=== PATIENT | male | born 1945 | race Caucasian/White ===

== ENCOUNTER 2016-08-25 06:03 | Observation (INO) | payer OTHER ==
[~2016-08-25] VITALS: Ht 175.3 cm; Wt 80.0 kg
[2016-08-25] VITALS (9 sets, daily range): BP systolic 96–129; BP diastolic 62–99; PULSE 73–96; RESP 16–18; TEMP 97.7–98; O2SAT 95–99
[2016-08-25] MEDS ORDERED: METOPROLOL TARTRATE 25 MG TAB PO PRN (06:45)
[2016-08-25] MEDS ORDERED: SODIUM CHLORID 0.9% 500 ML IV SCH (06:45)
[2016-08-25] MEDS ORDERED: LORazepam 1 MG TAB SL SCH (06:45)
[2016-08-25] MEDS ORDERED: INSULIN HUMAN REGULAR 1,000 UNITS/10 ML VIAL SQ PRN (06:45)
[2016-08-25] MEDS ORDERED: LACTATED RINGER'S 1000 ML IV SCH (06:45)
[2016-08-25] MEDS ORDERED: MULT400T PO (06:56)
[2016-08-25] MEDS ORDERED: WARF-23 PO (06:56)
[2016-08-25 07:05] LABS: AUTOMATED NEUTROPHIL # 2.6 TH/MM3 (1.8-7.7); BASOPHIL # 0.1 TH/MM3 (0-0.2); BASOPHIL % 1.5 % (0.0-2.0); EOSINOPHIL # 0.2 TH/MM3 (0-0.4); EOSINOPHIL % 3.5 % (0.0-4.0); HEMATOCRIT 44.4 % (39.0-51.0); HEMO FLAGS DIFF FINAL; LYMPHOCYTE # 1.3 TH/MM3 (1.0-4.8); MEAN CELL VOLUME 91.3 FL (80.0-100.0); MEAN CORPUSCULAR HEMOGLOBIN 31.8 PG (27.0-34.0); MEAN CORPUSCULAR HGB CONC 34.8 % (32.0-36.0); MONO % 9.3 % (0.0-8.0); NEUT % 56.7 % (16.0-70.0); PLATELET COUNT 151 TH/MM3 (150-450); RED BLOOD COUNT 4.86 MIL/MM3 (4.50-5.90); RED CELL DISTRIBUTION WIDTH 13.2 % (11.6-17.2); WHITE BLOOD COUNT 4.5 TH/MM3 (4.0-11.0)
[2016-08-25 07:12] LABS: APTT (PATIENT) 34.5 SEC (24.3-30.1); INTERNATIONAL NORMALIZED RATIO 2.1 RATIO; PROTHROMBIN TIME - PATIENT 23.6 SEC (9.8-11.6)
[2016-08-25 07:30] LABS: BICARBONATE 25.1 MEQ/L (21.0-32.0); POTASSIUM 3.9 MEQ/L (3.5-5.1)
[2016-08-25] MEDS ORDERED: LEVOFLOXACIN 500 MG PREMIX INJ 100 ML IV ONE (07:38)
[2016-08-25] MEDS ORDERED: HEPARIN-NS/PF INJ 500 ML ONE (07:38)
[2016-08-25] MEDS ORDERED: fentaNYL CITRATE 250 MCG/5 ML AMP ONE (08:42)
[2016-08-25] MEDS ORDERED: MIDAZOLAM HCL 2 MG/2 ML VIAL ONE (08:42)
--- NOTE | 2016-08-25 09:14 | EKG ---
Date Performed: 08/25/2016 Time Performed: 06:57:30 PTAGE: 71 years EKG: Atrial fibrillation Indeterminate axis Right bundle branch block Inferior T wave changes ar e nonspecific Low QRS voltages in precordial leads Abnormal ECG NO PREVIOUS TRACING DOCTOR: Alexis Boone Interpretating Date/Time 08/25/2016 09:13:47
[2016-08-25] MEDS ORDERED: ISOPROTERENOL HCL 1 MG/5 ML AMP ONE (09:18)
[2016-08-25] MEDS ORDERED: HEPARIN SODIUM - IV 10,000 UNITS/10 ML VIAL ONE (09:19)
[2016-08-25] MEDS ORDERED: PROTAMINE SULFATE 50 MG/5 ML VIAL ONE (09:19)
[2016-08-25] MEDS ORDERED: FUROSEMIDE 40 MG/4 ML VIAL ONE (11:15)
[2016-08-25] MEDS ORDERED: ATROPINE SULFATE 1 MG/ML VIAL IV PRN (11:45)
[2016-08-25] MEDS ORDERED: LORazepam 2 MG/ML VIAL IV PRN (11:45)
[2016-08-25] MEDS ORDERED: oxyCODONE/ACETAMINOPHEN 5 MG/325 MG TAB PO PRN ×2 (11:45)
[2016-08-25] MEDS ORDERED: METOCLOPRAMIDE HCL 10 MG/2 ML VIAL IV PRN (11:45)
[2016-08-25] MEDS ORDERED: SODIUM CHLOR 0.9% 250 ML INJ 250 ML IV PRN (11:45)
[2016-08-25] MEDS ORDERED: LIDOCAINE HCL 1% 50 ML VIAL INFIL PRN (11:45)
[2016-08-25] MEDS ORDERED: BACITRACIN OINT 0.9 GM PKT TOP ONE (11:45)
[2016-08-25] MEDS ORDERED: ONDANSETRON HCL 4 MG/2 ML VIAL IV PRN (11:45)
--- NOTE | 2016-08-25 11:53 | PD.CARD ---
Atrial Fibrillation Ablation PROCEDURES PERFORMED: 1. Electrophysiology study on Isuprel infusion 2. CS cannulation 3. 3-D mapping 4. Transseptal approach 5. Right and left heart catheterization 6. Intracardiac echo 7. Radiofrequency ablation of atrial fibrillation 8. Pulmonary vein isolation 9. Posterior wall ablation 10. Mitral valve isolation 11. Mitral line creation 12. Left atrial tachycardia ablation 13. Roof line creation 14. Floor line creation 15. Anterior and posterior ablation 16. Cardioversion INDICATIONS FOR THE PROCEDURE Mr. Khoury is a 71-year-old male with atrial fibrillation, very symptomatic, heart rate difficult to control, on anticoagulation, referred for electrophysiology study and ablation. The risks, the nature and the benefits of the procedure were clearly stated to him. The risks include pneumothorax, cardiac perforation, stroke, need for open heart surgery and even . The patient understood and agreed to proceed. DESCRIPTION OF THE PROCEDURE IN DETAIL As written informed consent was obtained prior to esophageal echocardiogram, the patient was kept on the table where he was prepped and draped in the usual sterile fashion. Conscious sedation was initiated and maintained throughout the procedure by the anesthesiologist. Once sedation was verified, the right and left inguinal areas were anesthetized with 2% Xylocaine. Using modified Seldinger technique, the left femoral vein was cannulated on three occasions, three guidewires were advanced. Over the wire a 6, 7 and a 10-English Hemaquet were advanced. Then the left femoral artery was cannulated on one occasion, one guidewire was advanced. Over the wire a 4-English Hemaquet was advanced. Then the right femoral vein was cannulated on one occasion, one guidewire was advanced. Over the wire a 8-English Hemaquet was advanced. Then under fluoroscopic guidance through the 6 and 7-English Hemaquet, two 5-English Yogi curved quadripolar electrophysiology catheters were advanced and placed around the His as well as coronary sinus. Basic interval was measured. The patient was in atrial fibrillation. Through the 10-English Hemaquet, a CordDiamond Multimediater AcuNav intracardiac echo catheter was advanced and placed at the right atrium. Multiple view was obtained. There is no pericardial effusion, pulmonary vein was seen, atrial septal was visualized. Then the 8-English Hemaquet in the right femoral vein was exchanged for Agilis transseptal sheath that was placed all the way to the superior vena cava. Through the sheath a Thania needle was advanced, then the sheath, the dilator and the needle were progressed until foci engaged. Once engaged, the needle was advanced. RF was delivered for 2 seconds. I was able to cross into the left atrium. Once the needle crossed, the dilator was advanced. Once the dilator crossed, the sheath was advanced. Once the sheath crossed, the dilator and the needle were removed. At this point I did flushed the system and fluid movement was seen in the left atrium the indicates the sheath is in good position. The patient already received 8,000 units of heparin. The goal is to keep an ACT around 350 during ablation. Then through the sheath a St. Kwan 20 pulse circumferential catheter was advanced. Using DivvyDown endocardial solution mapping system, a two- dimensional configuration of the left atrium was obtained. Points were taken at the left superior and inferior veins, right superior and inferior veins, mitral valve, and appendages. Then through the sheath a St. Kwan TactiCath 65cm 3.5mm irrigated tipped mapping and radiofrequency ablation catheter was advanced. Esophageal probe was placed temperature monitoring during ablation. When it increased to 0.5 degrees Celsius above baseline, I moved to a different area of the atrium. First I did isolate the left superior and inferior vein. I did make a big seneca-cayuga around the veins. Posterior was ablated. Then a roof line was created, a floor line was created, a mitral line was isolated, then the mitral valve was isolated. At that point the patient was in left atrial tachycardia. I did create a line from the floor to the roof area, passing by the left atrial appendage. Then the right superior and inferior veins were isolated. I did remap the atrium. There is no significant signal in the atrium. At this point I decided to proceed with cardioversion. A 200 sync biphasic joule was delivered that converted the patient into sinus rhythm. At that point I did advance the circumferential catheter again into the vein. There was no signal into the vein, pacing from the vein showed no conduction to the atrium. Isuprel infusion was initiated at 10 mcg for over 10 minutes. No tachyarrhythmia was induced, post Isuprel no tachyarrhythmia was induced. At that point the procedure was complete. All catheters were removed, atrial septal sheath was exchanged for 9-English Hemaquet, intracardiac echo showed no pericardial effusion. There is still good flow in the pulmonary vein. The patient is going to be transferred to the recovery room. No incident report. The patient tolerated the procedure. Blood loss was minimal. FINDINGS 1. Electrocardiogram: At baseline the patient was in atrial fibrillation, post procedure the patient was in sinus rhythm. 2. Basic interval: Base cycle length was around 450. Post ablation she was around 890 milliseconds. AH at 90 and HV at 45 milliseconds. 3. Tachyarrhythmia: Atrial fibrillation was mapped and ablated. Atrial tachycardia was ablated. The ablation was successful. CONCLUSION Successful electrophysiology study, mapping, radiofrequency ablation of atrial fibrillation, left atrial tachycardia, pulmonary vein isolation, posterior ablation, mitral valve isolation, mitral line creation, roof line creation, floor line creation, left atrial tachycardia, and cardioversion. COMMENTS AND RECOMMENDATIONS The patient is going to be transferred to the telemetry unit. Will be observed and when stable can be discharged home. Jina Sands MD Aug 25, 2016 11:53
--- NOTE | 2016-08-25 11:56 | ETE ---
Study Study Date:08/25/2016 STUDY CONCLUSIONS SUMMARY - Left ventricle: The cavity size was normal. Wall thickness was normal. Systolic function was normal. The estimated ejection fraction was in the range of 55% to 60%. Wall motion was normal; there were no regional wall motion abnormalities. - Aortic valve: No evidence of vegetation. - Mitral valve: No evidence of vegetation. Mild regurgitation. - Left atrium: The atrium was dilated. No evidence of thrombus in the atrial cavity or appendage. No evidence of thrombus in the atrial cavity or appendage. - Right atrium: No evidence of thrombus in the atrial cavity or appendage. - Atrial septum: No defect or patent foramen ovale was identified. Echo contrast study showed no abstt-tq-[id number] atrial level shunt, at baseline or with provocation. - Tricuspid valve: No evidence of vegetation. Mild regurgitation. - Pulmonic valve: No evidence of vegetation. If LV function is below 40, please consider prescribing an ACEI or ARB or document rationale for non-use. PROCEDURE DATA Consent: The risks, benefits, and alternatives to the procedure were explained to the patient and informed consent was obtained. Procedure: Initial setup. The patient was brought to the laboratory in the fasting state. Intravenous access was obtained. Surface ECG leads and pulse oximetric signals were monitored. Sedation. Conscious sedation was administered by anesthesiology. Transesophageal echocardiography. Topical anesthesia was obtained using viscous lidocaine. A transesophageal probe was inserted by the attending beauty culture teacher. Image quality was good. Study completion: All IVs inserted during the procedure were removed. The patient tolerated the procedure well. There were no complications. Transesophageal echocardiography. 2D, complete spectral Doppler, and color Doppler. CARDIAC ANATOMY LEFT VENTRICLE: The cavity size was normal. Wall thickness was normal. Systolic function was normal. The estimated ejection fraction was in the range of 55% to 60%. Wall motion was normal; there were no regional wall motion abnormalities. AORTIC VALVE: Trileaflet; mildly thickened, mildly calcified leaflets. Cusp separation was normal. No evidence of vegetation. Doppler: No significant regurgitation. Aorta: - There was no atheroma. There was no evidence for dissection. Aortic root: The aortic root was not dilated. Ascending aorta: The ascending aorta was normal in size. Aortic arch: The aortic arch was normal in size. Descending aorta: The descending aorta was normal in size. MITRAL VALVE: Structurally normal valve. Leaflet separation was normal. No evidence of vegetation. Doppler: Mild regurgitation. LEFT ATRIUM: The atrium was dilated. No evidence of thrombus in the atrial cavity or appendage. No evidence of thrombus in the atrial cavity or appendage. The appendage was morphologically a left appendage, multilobulated, and of normal size. Emptying velocity was normal. ATRIAL SEPTUM: No defect or patent foramen ovale was identified. Echo contrast study showed no ybxlg-zq-cxoq atrial level shunt, at baseline or with provocation. RIGHT VENTRICLE: The cavity size was normal. Wall thickness was normal. Systolic function was normal. PULMONIC VALVE: Structurally normal valve. No evidence of vegetation. TRICUSPID VALVE: Structurally normal valve. Leaflet separation was normal. No evidence of vegetation. Doppler: Mild regurgitation. PULMONARY ARTERY: The main pulmonary artery was normal-sized. RIGHT ATRIUM: The atrium was normal in size. No evidence of thrombus in the atrial cavity or appendage. The appendage was morphologically a right appendage. PERICARDIUM: There was no pericardial effusion. Prepared and signed by Jina Sands [id number]
[2016-08-25] MEDS ORDERED: DO NOT ADM ANY ANTICOAGULANT DRUGS XX PRN ×2 (12:15→16:00)
[2016-08-25] MEDS ORDERED: PHENYLEPH/NS 1000 MCG/10 ML SYR OTHER ONE (13:50)
[2016-08-25] MEDS ORDERED: ePHEDrine/NS 50 MG/5 ML SYR OTHER ONE (13:50)
[2016-08-25] MEDS ORDERED: SODIUM CHLORID 0.9% 500 ML BAG OTHER ONE (13:50)
[2016-08-25] MEDS ORDERED: SODIUM CHLOR 0.9% IV ONE (13:50)
[2016-08-25] MEDS ORDERED: PROPOFOL 200 MG/20 ML AMP OTHER ONE (13:50)
[2016-08-25] MEDS: WARFARIN SOD 5 MG TAB PO SCH (16:17)
[2016-08-25] MEDS: SODIUM CHLORID 0.9% 500 ML INJ 500 ML IV SCH (23:25)
[2016-08-26] VITALS (21 sets, daily range): BP systolic 95–126; BP diastolic 68–76; PULSE 58–96; RESP 16–20; TEMP 97.7–98.5; O2SAT 93–97
[2016-08-26] MEDS: AMIODARONE 200 MG TAB PO SCH ×3 (00:07→23:00)
[2016-08-26 09:04] LABS: APTT (PATIENT) 35.1 SEC (24.3-30.1); INTERNATIONAL NORMALIZED RATIO 2.7 RATIO; PROTHROMBIN TIME - PATIENT 30.7 SEC (9.8-11.6)
[2016-08-26] MEDS ORDERED: AMIO200T PO ×2 (09:27)
--- NOTE | 2016-08-26 09:33 | PD.CARD.PN ---
Subjective Subjective Remarks Feels ok. Objective Medications Current Medications Medications (Trade) Dose Ordered Sig/Susan Route Start Time Stop Time Status Last Admin (NS 500 ml Inj) 500 ml @ 30 mls/hr [id number] IV 08/25/16 06:45 (Percocet 5-325 Mg) 1 tab Q4H PRN PO 08/25/16 11:45 (Percocet 5-325 Mg) 2 tab Q4H PRN PO 08/25/16 11:45 (Ativan Inj) 0.5 mg UNSCH PRN IV 08/25/16 11:45 08/26/16 11:44 Atropine Sulfate 0.5 mg 0.5 mg UNSCH PRN IV 08/25/16 11:45 (NS 250 ml Inj) 250 ml @ 500 mls/hr ONCE PRN IV 08/25/16 11:45 08/26/16 11:44 (Reglan Inj) 10 mg Q4H PRN IV 08/25/16 11:45 (Zofran Inj) 4 mg Q4H PRN IV 08/25/16 11:45 08/25/16 16:17 (Xylocaine 1% Inj (50 ml)) 10 ml UNSCH PRN INFIL 08/25/16 11:45 08/26/16 11:44 (Coumadin) 5 mg DAILY@1600 PO 08/25/16 16:00 08/25/16 16:17 (Cordarone) 400 mg Q12H PO 08/25/16 12:00 08/30/16 00:01 08/26/16 00:07 (Cordarone) 200 mg DAILY PO 08/30/16 09:00 Miscellaneous Information ALL NURSING DEPARTME... UNSCH PRN XX 08/25/16 12:15 08/26/16 12:14 Miscellaneous Information ALL NURSING DEPARTME... UNSCH PRN XX 08/25/16 16:00 08/26/16 15:59 Vital Signs / I&O Vital Signs Date Time Temp Pulse Resp B/P Pulse Ox O2 Delivery O2 Flow Rate FiO2 08/26/16 09:23 93 21 08/26/16 07:51 97.8 79 20 95/70 97 08/26/16 03:00 98.1 58 18 126/76 97 08/25/16 23:00 98.0 73 18 104/65 96 08/25/16 20:47 95 Nasal Cannula 3.00 08/25/16 19:00 97.9 96 16 103/74 96 08/25/16 18:32 97.8 80 18 108/84 98 08/25/16 18:01 97.8 78 18 103/82 97 08/25/16 17:03 97.8 84 18 101/75 95 08/25/16 15:32 97.9 94 18 96/62 99 08/25/16 15:00 97.8 96 18 96/62 99 08/25/16 15:00 97.9 94 18 110/83 97 08/25/16 13:55 97.5 87 16 100/81 97 Nasal Cannula 3 08/25/16 13:30 80 16 110/79 97 Nasal Cannula 3 08/25/16 13:00 80 16 103/73 97 Nasal Cannula 3 08/25/16 12:45 80 16 96/76 97 Nasal Cannula 3 08/25/16 12:30 85 16 110/75 97 Nasal Cannula 3 08/25/16 12:15 81 17 105/85 97 Nasal Cannula 3 08/25/16 12:00 79 15 115/68 96 Nasal Cannula 3 08/25/16 11:45 92 15 117/79 96 Nasal Cannula 3 08/25/16 11:40 98.4 83 14 124/63 95 Nasal Cannula 3 I/O 08/25/16 08/25/16 08/25/16 08/26/16 08/26/16 08/26/16 07:00 15:00 23:00 07:00 15:00 23:00 Intake Total 3100 ml 720 ml 1680 ml Output Total 3150 ml 650 ml 550 ml Balance -50 ml 70 ml 1130 ml Intake Oral 720 ml 1680 ml IV Total 1000 ml Other 2100 ml Output Urine Total 3050 ml 650 ml 550 ml Estimated Blood Loss 100 ml Physical Exam GENERAL: Well-nourished, well-developed patient. SKIN: Warm and dry.Groin sites soft with no bleeding or swelling. HEAD: Normocephalic. EYES: No scleral icterus. No injection or drainage. NECK: Supple, trachea midline. No JVD or lymphadenopathy. CARDIOVASCULAR: Regular rate, irregular rhythm without murmurs, gallops, or rubs. RESPIRATORY: Breath sounds equal bilaterally. No accessory muscle use. GASTROINTESTINAL: Abdomen soft, non-tender, nondistended. EXTREMITIES: No cyanosis, or edema. NEUROLOGICAL: Awake, alert, and oriented x 3. Non-focal. Laboratory Laboratory Tests Test 08/26/16 07:05 Prothrombin Time 30.7 SEC Prothromb Time International 2.7 RATIO Ratio Activated Partial 35.1 SEC Thromboplast Time Assessment and Plan Problem List: (1) Atrial fibrillation Assessment and Plan: Converted back to afib after successful ablation. Amiodarone loading ordered. HR controlled. (2) S/P ablation of atrial fibrillation Assessment and Plan: Groin sites stable, VSS, in afib at controlled rate on amio. Hold DC home today per my d/w Dr. Sands Problem Qualifiers (1) Atrial fibrillation: Qualified Code: I48.2 - Chronic atrial fibrillation Nirmala Delgadillo Aug 26, 2016 09:33
[2016-08-26] MEDS: CEPHALEXIN MONOHYDRATE 500 MG CAP PO SCH ×2 (14:18→21:13)
[2016-08-26] MEDS: SODIUM CHLORID 0.9% 500 ML INJ 500 ML IV SCH (16:05)
[2016-08-26] MEDS: WARFARIN SOD 5 MG TAB PO SCH (16:05)
--- NOTE | 2016-08-26 22:50 | EKG ---
Date Performed: 08/26/2016 Time Performed: 04:05:40 PTAGE: 71 years EKG: Sinus rhythm with PAC(s) Indeterminate axis Right bundle branch block Inferior ST-T changes are nonspecific Abnor mal ECG PREVIOUS TRACING : 08/25/2016 12.01 DOCTOR: Jina Sands Interpretating Date/Time 08/26/2016 22:46:49
--- NOTE | 2016-08-26 23:11 | EKG ---
Date Performed: 08/25/2016 Time Performed: 12:01:38 PTAGE: 71 years EKG: Sinus rhythm WITH OCCASIONAL SUPRAVENTRICULAR PREMATURE COMPLEXES RIGHT BUNDLE BRANCH BLOCK ABNORMAL ECG PREVIOUS TRACING : 08/25/2016 06.57 DOCTOR: Jina Sands Interpretating Date/Time 08/26/2016 23:06:44
[2016-08-27] VITALS (19 sets, daily range): BP systolic 116–128; BP diastolic 76–99; PULSE 65–87; RESP 16–18; TEMP 97.7–98.1; O2SAT 95–97
[2016-08-27] MEDS: CEPHALEXIN MONOHYDRATE 500 MG CAP PO SCH ×3 (06:00→23:00)
[2016-08-27] MEDS: AMIODARONE 200 MG TAB PO SCH ×2 (12:00→23:00)
[2016-08-27] MEDS ORDERED: PROPOFOL 200 MG/20 ML AMP IV ONE (12:31)
[2016-08-27] MEDS: WARFARIN SOD 5 MG TAB PO SCH (16:00)
[2016-08-27] MEDS: SODIUM CHLORID 0.9% 500 ML INJ 500 ML IV SCH (21:00)
--- NOTE | 2016-08-27 23:53 | HHI.PR ---
Subjective Remarks Feeling tired Objective Vital Signs Date Time Temp Pulse Resp B/P Pulse Ox O2 Delivery O2 Flow Rate FiO2 08/27/16 15:00 98.0 71 18 120/90 96 08/27/16 11:15 98.1 65 16 124/93 97 08/27/16 08:27 72 08/27/16 08:25 96 21 08/27/16 07:30 97.9 87 16 128/99 95 08/27/16 06:00 66 08/27/16 05:00 66 08/27/16 04:00 70 08/27/16 03:00 66 08/27/16 02:00 68 08/27/16 01:02 97.8 75 16 117/78 97 08/27/16 01:00 70 08/27/16 00:00 68 I/O 08/26/16 08/26/16 08/26/16 08/27/16 08/27/16 08/27/16 07:00 15:00 23:00 07:00 15:00 23:00 Intake Total 1680 ml 1710 ml Output Total 550 ml 950 ml Balance 1130 ml 760 ml Intake Oral 1680 ml 1250 ml IV Total 460 ml Output Urine Total 550 ml 950 ml # Bowel Movements 1 Result Diagram: 08/25/16 0125 08/25/16 0656 Imaging Alert, Fully oriented Lungs: ventilated Heart: S1, S2 regular Abdomen: soft, no mass Ext: no edema Current Medications Medications (Trade) Dose Ordered Sig/Susan Route Start Time Stop Time Status Last Admin (NS 500 ml Inj) 500 ml @ 30 mls/hr [id number] IV 08/25/16 06:45 (Percocet 5-325 Mg) 1 tab Q4H PRN PO 08/25/16 11:45 08/26/16 22:58 (Percocet 5-325 Mg) 2 tab Q4H PRN PO 08/25/16 11:45 (Atropine Inj) 0.5 mg UNSCH PRN IV 08/25/16 11:45 (Reglan Inj) 10 mg Q4H PRN IV 08/25/16 11:45 (Zofran Inj) 4 mg Q4H PRN IV 08/25/16 11:45 08/25/16 16:17 (Coumadin) 5 mg DAILY@1600 PO 08/25/16 16:00 08/27/16 16:00 (Cordarone) 400 mg Q12H PO 08/25/16 12:00 08/30/16 00:01 08/27/16 23:00 (Cordarone) 200 mg DAILY PO 08/30/16 09:00 (Keflex) 500 mg Q8HR PO 08/26/16 14:00 08/29/16 13:59 08/27/16 23:00 Assessment and Plan Problem List: (1) Atrial fibrillation Status: Acute Plan: SP ablation. Back in atrial fibrillation. Was cardioverted back into sinus rhythm Stable On amio and coumadin INR will be evaluated as OP can be DH in AM if stable Problem Qualifiers (1) Atrial fibrillation: Qualified Code: I48.2 - Chronic atrial fibrillation Jina Sands MD Aug 27, 2016 23:53
[2016-08-28] VITALS (14 sets, daily range): BP systolic 107–118; BP diastolic 67–76; PULSE 50–79; RESP 18; TEMP 96.2–98; O2SAT 96–99
[2016-08-28] MEDS: CEPHALEXIN MONOHYDRATE 500 MG CAP PO SCH (06:00)
[2016-08-28 08:07] LABS: PROTHROMBIN TIME - PATIENT 22.6 SEC (9.8-11.6)
--- NOTE | 2016-08-28 09:38 | HHI.DS ---
Discharge Summary Admission Date Aug 25, 2016 at 16:29 Discharge Date: Aug 28, 2016 Admitting Diagnosis Atrial fibrillation (1) Atrial fibrillation Diagnosis: Principal (2) S/P ablation of atrial fibrillation Diagnosis: Secondary Procedures Atrial fibrillation ablation DC Cardioversion Brief History Admitted for elective atrial fibrillation ablation. CBC/BMP: 08/25/16 0125 08/25/16 0656 Significant Findings Laboratory Tests Test 08/26/16 08/28/16 07:05 07:24 Prothrombin Time 30.7 SEC 22.6 SEC (9.8-11.6) (9.8-11.6) Activated Partial 35.1 SEC Thromboplast Time (24.3-30.1) Hospital Course Post ablation he was in NSR then converted back to atrial fibrillation overnight. Amiodarone loading was initiated and pt. remained in afib. On 08/27 he underwent cardioversion and remained in NSR. On 08/28 he was deemed stable for d/c home on amiodarone with outpatient followup. Pt Condition on Discharge: Stable Discharge Disposition: Discharge Home Discharge Instructions DIET: Follow Instructions for: Heart Healthy Diet Speech Therapy-Diet Recommenda: Regular Activities you can perform: Shower Only-No Bath Additional Activity Instructio: Per Dr. Sands's post ablation instructions. New Medications: Amiodarone (Amiodarone) 200 Mg Tab 400 MG PO Q12H Regulate Heart Beat #10 TAB Amiodarone (Amiodarone) 200 Mg Tab 200 MG PO DAILY Regulate Heart Beat #30 TAB Continued Medications: Warfarin (Warfarin) 5 Mg Tab 5 MG PO DAILY Blood Clot Prevention #30 Ref 0 TAB Nirmala Delgadillo Aug 28, 2016 09:38
[2016-08-28] MEDS: AMIODARONE 200 MG TAB PO SCH (11:11)
--- NOTE | 2016-08-28 17:21 | EKG ---
Date Performed: 08/27/2016 Time Performed: 14:12:10 PTAGE: 71 years EKG: Atrial fibrillation. Right bundle branch block Inferior T wave changes are nonspecific Abno rmal ECG PREVIOUS TRACING : 08/26/2016 04.05 Atrial fibrillation is new since prior tracing. Clinical co rrelation recommended. DOCTOR: Bola Olmos Interpretating Date/Time 08/28/2016 17:19:52
[2016-08-30] MEDS ORDERED: AMIODARONE 200 MG TAB PO SCH (09:00)
== END 2016-08-28 11:25 | disposition home or self-care (01) ==
LOC: HDIC 06:03 → HDOC 06:03 → HCIS 15:20 → HDOC 16:59
PROVIDERS: ADMIT Internal Medicine Interventional Cardiology; ATTEND Internal Medicine Interventional Cardiology
DX: I48.2 Chronic atrial fibrillation (principal); I47.1 Supraventricular tachycardia; R06.02 Shortness of breath; R06.83 Snoring; Z79.01 Long term (current) use of anticoagulants; Z86.73 Personal history of transient ischemic attack (TIA), and cerebral infarction without residual deficits
CPT/HCPCS: 00537; 80048; 85002; 85025; 85610; 85730; 86850; 86900; 86901; 92960; 93005; 93312; 93320; 93325; 93613; 93623; 93656; 93662; C1730; C1731; C1732; C1759; C1766; C2630; G0378; J1644; J1940; J1956; J2060; J2250; J2370; J2405; J2720; J3010; J7040; J7050

== ENCOUNTER 2016-09-24 14:10 | Observation (INO) | payer MEDICARE, OTHER ==
[~2016-09-24] VITALS: Ht 175.3 cm; Wt 78.0 kg
[2016-09-24] VITALS (9 sets, daily range): BP systolic 18–147; BP diastolic 68–106; PULSE 65–124; RESP 18–21; TEMP 97.7; O2SAT 95–100
[~2016-09-24 14:10] MED LIST: AMIO200T PO; WARF-23 PO
[2016-09-24] MEDS ORDERED: SODIUM CHLORIDE 0.9% FLUSH 5 ML FLUSH IVF PRN (15:00)
[2016-09-24] MEDS ORDERED: DILTIAZEM HCL 25 MG/5 ML VIAL IV PUSH ONE (15:00)
[2016-09-24 15:15] LABS: AUTOMATED NEUTROPHIL # 6.1 TH/MM3 (1.8-7.7); BASOPHIL % 0.4 % (0.0-2.0); EOSINOPHIL # 0.1 TH/MM3 (0-0.4); HEMO FLAGS DIFF FINAL; LYMPH % 15.7 % (9.0-44.0); LYMPHOCYTE # 1.3 TH/MM3 (1.0-4.8); MEAN CELL VOLUME 91.3 FL (80.0-100.0); MEAN CORPUSCULAR HEMOGLOBIN 31.3 PG (27.0-34.0); MEAN CORPUSCULAR HGB CONC 34.3 % (32.0-36.0); MONO % 7.3 % (0.0-8.0); NEUT % 75.6 % (16.0-70.0); PLATELET COUNT 168 TH/MM3 (150-450); RED BLOOD COUNT 5.58 MIL/MM3 (4.50-5.90); RED CELL DISTRIBUTION WIDTH 13.7 % (11.6-17.2)
[2016-09-24] MEDS ORDERED: DILTIAZEM HCL 50 MG/10 ML VIAL IV PUSH ONE (15:15)
[2016-09-24 15:18] LABS: APTT (PATIENT) 36.9 SEC (24.3-30.1); INTERNATIONAL NORMALIZED RATIO 2.2 RATIO; PROTHROMBIN TIME - PATIENT 25.7 SEC (9.8-11.6)
--- NOTE | 2016-09-24 15:22 | RADRPT ---
EXAM DATE/TIME: 09/24/2016 14:56 [facility] COMPARISON: No previous studies available for comparison. INDICATIONS: Tachycardia. Short of breath. MEDICAL HISTORY: None. SURGICAL HISTORY: None. ENCOUNTER: Initial ACUITY: 2 days PAIN SCORE: 0/10 LOCATION: Bilateral chest FINDINGS: There is mild compensated cardiomegaly. Calcified left perihilar nodes are noted. Pulmonary vascula rity is normal. CONCLUSION: 1. Compensated cardiomegaly. 2. Calcified left perihilar nodes. Baron Omer MD FACR on September 24, 2016 at 15:10 Board Certified Radiologist. This report was verified electronically.
[2016-09-24 15:24] LABS: ALT (GPT) 25 U/L (12-78); ANION GAP 9 MEQ/L (5-15); AST (GOT) 17 U/L (15-37); BICARBONATE 25.2 MEQ/L (21.0-32.0); BLOOD UREA NITROGEN 16 MG/DL (7-18); CHLORIDE 109 MEQ/L (98-107); GLOMERULAR FILTRATION RATE 65 ML/MIN (>89); MAGNESIUM 2.1 MG/DL (1.5-2.5); POTASSIUM 4.2 MEQ/L (3.5-5.1); SODIUM (NA) 143 MEQ/L (136-145)
[2016-09-24 15:34] LABS: ALKALINE PHOSPHATASE 78 U/L (45-117); TOTAL BILIRUBIN ADULT 1.3 MG/DL (0.2-1.0)
[2016-09-24 15:36] LABS: CREATINE KINASE 84 U/L (39-308)
[2016-09-24] MEDS ORDERED: DILT31TA PO (17:16)
--- NOTE | 2016-09-24 17:16 | PD ---
HPI Chief Complaint: Cardiac Complaint Time Seen by Provider: 14:42 Travel History International Travel<30 days: No Contact w/Intl Traveler<30days: No Traveled to known affect area: No History of Present Illness HPI Patient is a 71-year-old male with history of A. fib who comes in complaining of shortness of breath and rapid heart rate. He says he was pulseless been in the 120s for the past couple of days. He called his doctor's office today and he was told to come in. He denies her having any chest pain. He says he only feels short of breath when he is walking around. He denies any leg swelling or recent trips. He denies any nausea or vomiting. He is currently on amiodarone as well as Coumadin for the A. fib. He had an ablation performed by Dr. Sands in August. [facility] Past Medical History Hx Anticoagulant Therapy: Yes (COUMADIN) Arthritis: No Asthma: No Depression: Yes Heart Rhythm Problems: Yes (A FLUTTER ) Cancer: Yes (THROAT) Cardiovascular Problems: Yes High Cholesterol: No Chemotherapy: No Chest Pain: No Congestive Heart Failure: No COPD: No Cerebrovascular Accident: Yes Diabetes: No Endocrine: Yes Gastrointestinal Disorders: No Glaucoma: No Genitourinary: Yes Hepatitis: No Hiatal Hernia: No Musculoskeletal: Yes Neurologic: No Psychiatric: No Reproductive: No Respiratory: No Integumentary: No Radiation Therapy: Yes Sleep Apnea: No Thyroid Disease: No Tetanus Vaccination: < 5 Years Influenza Vaccination: Yes Past Surgical History Abdominal Surgery: No AICD: No Cardiac Surgery: No Ear Surgery: No Endocrine Surgery: No Eye Surgery: Yes Genitourinary Surgery: No Gynecologic Surgery: No Oral Surgery: No Pacemaker: No Thoracic Surgery: No Tonsillectomy: Yes Social History Alcohol Use: Yes (MODERATE) Tobacco Use: No Substance Use: No Allergies-Medications (Allergen,Severity, Reaction): Coded Allergies: No Known Allergies (Unverified , 08/25/16) Reported Meds & Prescriptions Reported Meds & Active Scripts Active Amiodarone (Amiodarone HCl) 200 Mg Tab 200 Mg PO DAILY Reported Warfarin 2.5 Mg Tab 1.25 Mg PO BID Review of Systems Except as stated in HPI: all other systems reviewed are Neg General / Constitutional: No: Fever, Chills HENT: No: Headaches, Lightheadedness Cardiovascular: Positive: Palpitations, No: Chest Pain or Discomfort Respiratory: Positive: Shortness of Breath Gastrointestinal: No: Nausea, Vomiting Musculoskeletal: No: Edema, Pain Skin: No Rash, No Change in Pigmentation Neurologic: No: Weakness, Dizziness Physical Exam Narrative GENERAL: Awake and alert, in no acute distress. SKIN: Warm and dry. HEAD: Atraumatic. Normocephalic. EYES: Pupils equal and round. No scleral icterus. ENT: Mucous membranes pink and moist. NECK: Trachea midline. No JVD. CARDIOVASCULAR: Tachycardia. No murmur appreciated. RESPIRATORY: No accessory muscle use. Clear to auscultation. Breath sounds equal bilaterally. GASTROINTESTINAL: Abdomen soft, non-tender, nondistended. MUSCULOSKELETAL: No obvious deformities. No clubbing. No cyanosis. No edema. No calf tenderness. NEUROLOGICAL: Awake and alert. No obvious cranial nerve deficits. Motor grossly within normal limits. Normal speech. PSYCHIATRIC: Appropriate mood and affect; insight and judgment normal. Data Data Last Documented VS Vital Signs Date Time Temp Pulse Resp B/P Pulse Ox O2 Delivery O2 Flow Rate FiO2 09/24/16 18:20 122 21 138/106 96 Room Air 09/24/16 14:14 97.7 Orders Electrocardiogram (09/24/16 ) Diltiazem Inj (Cardizem Inj) (09/24/16 15:00) Diltiazem Inj (Cardizem Inj) (09/24/16 15:15) B-Type Natriuretic Peptide (09/24/16 14:47) Ckmb (Isoenzyme) Profile (09/24/16 14:47) Complete Blood Count With Diff (09/24/16 14:47) Comprehensive Metabolic Panel (09/24/16 14:47) Magnesium (Mg) (09/24/16 14:47) Prothrombin Time / Inr (Pt) (09/24/16 14:47) Act Partial Throm Time (Ptt) (09/24/16 14:47) Troponin I (09/24/16 14:47) Chest, Single Ap (09/24/16 14:47) Ecg Monitoring (09/24/16 14:47) Bilateral Bp Monitoring (09/24/16 14:47) Iv Access Insert/Monitor (09/24/16 14:47) Oximetry (09/24/16 14:47) Oxygen Administration (09/24/16 14:47) Sodium Chloride 0.9% Flush (Ns Flush) (09/24/16 15:00) Thyroid Stimulating Hormone (09/24/16 14:47) Electrocardiogram (09/24/16 ) Diltiazem Inj (Cardizem Inj) (09/24/16 18:15) Amiodarone (Cordarone) (09/25/16 09:00) Diltiazem (Cardizem) (09/24/16 21:00) Warfarin (Coumadin) (09/24/16 21:00) Admit Order (Ed Use Only) (09/24/16 19:04) Labs Laboratory Tests Test 09/24/16 15:00 White Blood Count 8.0 TH/MM3 Red Blood Count 5.58 MIL/MM3 Hemoglobin 17.5 GM/DL Hematocrit 51.0 % Mean Corpuscular Volume 91.3 FL Mean Corpuscular Hemoglobin 31.3 PG Mean Corpuscular Hemoglobin 34.3 % Concent Red Cell Distribution Width 13.7 % Platelet Count 168 TH/MM3 Mean Platelet Volume 9.4 FL Neutrophils (%) (Auto) 75.6 % Lymphocytes (%) (Auto) 15.7 % Monocytes (%) (Auto) 7.3 % Eosinophils (%) (Auto) 1.0 % Basophils (%) (Auto) 0.4 % Neutrophils # (Auto) 6.1 TH/MM3 Lymphocytes # (Auto) 1.3 TH/MM3 Monocytes # (Auto) 0.6 TH/MM3 Eosinophils # (Auto) 0.1 TH/MM3 Basophils # (Auto) 0.0 TH/MM3 CBC Comment DIFF FINAL Differential Comment Prothrombin Time 25.7 SEC Prothromb Time International 2.2 RATIO Ratio Activated Partial 36.9 SEC Thromboplast Time Sodium Level 143 MEQ/L Potassium Level 4.2 MEQ/L Chloride Level 109 MEQ/L Carbon Dioxide Level 25.2 MEQ/L Anion Gap 9 MEQ/L Blood Urea Nitrogen 16 MG/DL Creatinine 1.11 MG/DL Estimat Glomerular Filtration 65 ML/MIN Rate Random Glucose 102 MG/DL Calcium Level 9.3 MG/DL Magnesium Level 2.1 MG/DL Total Bilirubin 1.3 MG/DL Aspartate Amino Transf 17 U/L (AST/SGOT) Alanine Aminotransferase 25 U/L (ALT/SGPT) Alkaline Phosphatase 78 U/L Total Creatine Kinase 84 U/L Troponin I LESS THAN 0.02 NG/ML B-Type Natriuretic Peptide 163 PG/ML Total Protein 7.4 GM/DL Albumin 4.1 GM/DL Thyroid Stimulating Hormone 0.551 uIU/ML 3rd Gen [facility] Medical Decision Making Medical Screen Exam Complete: Yes Emergency Medical Condition: Yes Medical Record Reviewed: Yes Interpretation(s) ECG shows a flutter with RVR at 121. Differential Diagnosis Atrial fibrillation versus atrial flutter versus electrolyte abnormality versus ACS Narrative Course Patient is a 71-year-old male comes in complaining of rapid heart rate with exertional shortness of breath. Exam shows tachycardia. Patient's pulse is in the 120s. IV established, patient connected to the cardiac cath tech. Patient given 1 dose of Cardizem, 20 mg, with control of his rate in the 60s. Repeat ECG shows A. fib at 67. Labs sent show no acute abnormalities. Chest x-ray performed shows no acute abnormalities. I spent 45 minutes with the patient and his trying to explain atrial fibrillation to them both. I explained that it seems the ablation did not work and he has electricity in his heart causing it to not to beat correctly and to beat fast. I explained that the medication was controlling his rate and that if he continued to take the medication it hopefully would continued to control the rate. Patient and his were very nervous, and did not understand the disease process. They're not comfortable with discharge. Patient's heart rate returned to 120, he was given a second dose of Cardizem. Patient placed in observation for further management. Diagnosis Primary Impression: Atrial fibrillation Qualified Code: I48.2 - Chronic atrial fibrillation Admitting Information Admitting Physician Requests: Observation Patient Instructions: General Instructions Additional Instructions: Follow up with your actuarial analyst. Monitor your blood pressure to make sure it does not drop too low while taking Amiodarone and Cardizem together. Return to the ED as needed for any worsening symptoms. Scripts Diltiazem (Cardizem)30 Mg Tab30 Mg PO QID #120 TAB Ref 0 Prov:Nanette Blackman MD 09/25/16 Sis Higgins MD Sep 24, 2016 17:16
[2016-09-24] MEDS ORDERED: DILTIAZEM HCL 25 MG/5 ML VIAL IV ONE (18:15)
[2016-09-24] MEDS ORDERED: WARF-18 PO (18:21)
[2016-09-24] MEDS ORDERED: WARFARIN SOD 2.5 MG TAB PO SCH (21:00)
[2016-09-24] MEDS ORDERED: DILTIAZEM HCL 30 MG TAB PO SCH (21:00)
[2016-09-24] MEDS ORDERED: SODIUM CHLORIDE 0.9% FLUSH 5 ML FLUSH FLUSH PRN (22:00)
[2016-09-24] MEDS ORDERED: NALOXONE HCL 0.4 MG/ML AMP IV PRN (22:00)
[2016-09-25 00:40] VITALS: PULSE 67
[2016-09-25 00:41] VITALS: BP 138/93; PULSE 62; RESP 18; TEMP 97.8; O2SAT 98
[2016-09-25 08:17] VITALS: BP 114/79; PULSE 63; RESP 19; TEMP 96.1; O2SAT 94
[2016-09-25] MEDS ORDERED: AMIODARONE 200 MG TAB PO SCH (09:00)
[2016-09-25] MEDS ORDERED: SODIUM CHLORIDE 0.9% FLUSH 5 ML FLUSH FLUSH SCH (09:00)
[2016-09-25 11:57] VITALS: BP 124/80; PULSE 61; RESP 18; TEMP 95.9; O2SAT 96
--- NOTE | 2016-09-25 12:09 | HHI.HP ---
[facility] Primary Care Physician Non-Staff Admission Diagnosis Arrythmia Diagnoses: Chief Complaint: elevated HR Travel History International Travel<30 Days: No Contact w/Intl Traveler <30 Da: No Traveled to Known Affected Are: No History of Present Illness Patient is a 71-year-old male with history of A. 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 The patient came to the ED in complaining of shortness of breath and rapid heart rate. He says he was pulseless been in the 120s for the past couple of days. He called his doctor's office today and he was told to come in. He denies her having any chest pain. He says he only feels short of breath when he is walking around. He denies any leg swelling or recent trips. He denies any nausea or vomiting. He is currently on amiodarone as well as Coumadin for the A. fib. He had an ablation performed by Dr. Sands in August. His HR was in 120s in the ED, he did received cardizem bolus x 1 . ER physician spoke with cardiology who recommended PO cardizem, discharge patient to follow up as OP with cardiology. The patient and his however did not feel comfortable to live as his HR was still elevated. Patient received 2nd bolus of cardizem in the ED. He was admitted in observation. The patient denies feeling heart racing, no chest pain, diaphoresis, sob, n/v/d/c. He is satting well on room air. He however says she feel anxious at times but doesn't want any medications for anxiety. He and his has multiple questions, all were answered. Patient HR, BP remained stable. The patient was discharged in good condition home, to follow up as OP with PCP and cardiology. Review of Systems Except as stated in HPI: all other systems reviewed are Neg 12 system ROS reviewed and negative except as stated in HPI Past Family Social History Past Surgical History Ablation 08/2016 Eye surgery Right knee surgery Allergies: Coded Allergies: No Known Allergies (Unverified , 08/25/16) Family History Heart problems runs in his family. Father had AK at the age of 59. Mother abdominal cancer, unspecified. Social History Denies EtOH , tobacco or illicit drug use. Physical Exam Vital Signs Vital Signs Date Time Temp Pulse Resp B/P Pulse Ox O2 Delivery O2 Flow Rate FiO2 09/25/16 11:57 95.9 61 18 124/80 96 09/25/16 08:17 96.1 63 19 114/79 94 09/25/16 00:41 97.8 62 18 138/93 98 09/25/16 00:40 67 09/24/16 21:19 98 18 117/78 100 Room Air 09/24/16 19:16 66 18 114/80 95 Room Air 09/24/16 18:20 122 21 138/106 96 Room Air 09/24/16 17:45 118 20 110/73 96 Room Air 09/24/16 17:00 88 20 108/68 96 Room Air 09/24/16 16:00 68 20 110/70 96 Room Air 09/24/16 15:30 65 20 117/84 96 Room Air 09/24/16 15:00 98 Room Air 09/24/16 15:00 98 Room Air 09/24/16 14:37 122 22 98 Room Air 09/24/16 14:14 97.7 124 20 147/98 96 Room Air Physical Exam GENERAL: This is a well-nourished, well-developed patient, in no apparent distress. SKIN: No rashes, ecchymoses or lesions. Cool and dry. HEAD: Atraumatic. Normocephalic. No temporal or scalp tenderness. EYES: Pupils equal round and reactive. Extraocular motions intact. No scleral icterus. No injection or drainage. ENT: Nose without bleeding, purulent drainage or septal hematoma. Throat without erythema, tonsillar hypertrophy or exudate. Uvula midline. Airway patent. NECK: Trachea midline. No JVD or lymphadenopathy. Supple, nontender, no meningeal signs. CARDIOVASCULAR: Regular rate and rhythm without murmurs, gallops, or rubs. RESPIRATORY: Clear to auscultation. Breath sounds equal bilaterally. No wheezes , rales, or rhonchi. GASTROINTESTINAL: Abdomen soft, non-tender, nondistended. No hepato-splenomegaly , or palpable masses. No guarding. MUSCULOSKELETAL: Extremities without clubbing, cyanosis, or edema. No joint tenderness, effusion, or edema noted. No calf tenderness. Negative Homans sign bilaterally. NEUROLOGICAL: Awake and alert. Cranial nerves II through XII intact. Motor and sensory grossly within normal limits. Five out of 5 muscle strength in all muscle groups. Normal speech. Laboratory Laboratory Tests Test 09/24/16 15:00 White Blood Count 8.0 Red Blood Count 5.58 Hemoglobin 17.5 Hematocrit 51.0 Mean Corpuscular Volume 91.3 Mean Corpuscular Hemoglobin 31.3 Mean Corpuscular Hemoglobin 34.3 Concent Red Cell Distribution Width 13.7 Platelet Count 168 Mean Platelet Volume 9.4 Neutrophils (%) (Auto) 75.6 Lymphocytes (%) (Auto) 15.7 Monocytes (%) (Auto) 7.3 Eosinophils (%) (Auto) 1.0 Basophils (%) (Auto) 0.4 Neutrophils # (Auto) 6.1 Lymphocytes # (Auto) 1.3 Monocytes # (Auto) 0.6 Eosinophils # (Auto) 0.1 Basophils # (Auto) 0.0 CBC Comment DIFF FINAL Differential Comment Prothrombin Time 25.7 Prothromb Time International 2.2 Ratio Activated Partial 36.9 Thromboplast Time Sodium Level 143 Potassium Level 4.2 Chloride Level 109 Carbon Dioxide Level 25.2 Anion Gap 9 Blood Urea Nitrogen 16 Creatinine 1.11 Estimat Glomerular Filtration 65 Rate Random Glucose 102 Calcium Level 9.3 Magnesium Level 2.1 Total Bilirubin 1.3 Aspartate Amino Transf 17 (AST/SGOT) Alanine Aminotransferase 25 (ALT/SGPT) Alkaline Phosphatase 78 Total Creatine Kinase 84 Troponin I LESS THAN 0.02 B-Type Natriuretic Peptide 163 Total Protein 7.4 Albumin 4.1 Thyroid Stimulating Hormone 0.551 3rd Gen Result Diagram: 09/24/16 1500 09/24/16 1500 Imaging Last Impressions Chest X-Ray 09/24/16 1447 Signed Impressions: Service Date/Time: September 14:56 - CONCLUSION: 1. Compensated cardiomegaly. 2. Calcified left perihilar nodes. aBron Omer MD FACR Assessment and Plan Assessment and Plan Chronic atrial fibrillation Labs reviewed and findings discussed with the patient show no acute abnormalities. Chest x-ray reviewed without acute abnormalities. Patient is a 71-year-old male comes in complaining of rapid heart rate with exertional shortness of breath. Patient's HR in 120s on admission. Patient given 1 dose of Cardizem, 20 mg, with control of his rate in the 60s. Repeat ECG shows A. fib at 67. Cardiology was contacted by ER physician and recommended PO cardizem, discharge patient and follow up as OP with cardiology. Patient is already on coumadin and INR is 2.2 . Continue coumadin. patient/ did not feel comfortable to leave, patient got very anxious and his HR was noted in 120s , he received a 2nd bolus IV cardizem, and the patient was admitted under obs. The patient was monitored, his HR and BP remained controlled. Patient/ had many questions, all questions answered. Patient says he feels anxious at times however he doesn't want to take any anxiolytics. Patient/ reassured. Discharge plan discussed with the patient / at length. The patient was discharged in stable condition, to follow up as OP with PCP and consultants. DC plan: DC home in fairly stable condition. Medications per medication reconciliations. Monitor your blood pressure to make sure it does not drop too low while taking Amiodarone and Cardizem together. Followup as OP with PCP and cardiology. Activity ad caitie as tolerated. Diet: healthy heart diet Discussed Condition With patient, nurse, family () Nanette Blackman MD Sep 25, 2016 12:09
[2016-09-25] MEDS ORDERED: DILT31TA PO (15:15)
--- NOTE | 2016-09-25 15:41 | EKG ---
Date Performed: 09/24/2016 Time Performed: 14:24:28 PTAGE: 71 years EKG: ATRIAL FLUTTER/TACHYCARDIA WITH RAPID VENTRICULAR RESPONSE INDETERMINATE AXIS RIGHT BUNDLE BRANCH BLOCK ABNORMAL ECG INTERPRETATION BASED ON A DEFAULT AGE OF 41 YEARS PREVIOUS TRACING 08/27/2016 14.12.10 Compared to previous tracing, the patient is now in rapid ventricular rate. DOCTOR: Narcisa Mccracken Interpretating Date/Time 09/25/2016 15:39:54
--- NOTE | 2016-09-25 15:42 | EKG ---
Date Performed: 09/24/2016 Time Performed: 15:44:23 PTAGE: 71 years EKG: ATRIAL FIBRILLATION INDETERMINATE AXIS RIGHT BUNDLE BRANCH BLOCK ABNORMAL ECG PREVIOUS TRACING : 08/27/2016 14.12 Compared to previous tracing, the patient again has good ra te control. DOCTOR: Narcisa Mccracken Interpretating Date/Time 09/25/2016 15:40:23
== END 2016-09-25 15:56 | disposition home or self-care (01) ==
LOC: NEPE 14:10 → INTOOBSV 19:06 → NEDA 19:06 → NEPHCDU 09-25 00:15
PROVIDERS: ADMIT Hospitalist; ATTEND Hospitalist
DX: I48.2 Chronic atrial fibrillation (principal); I48.92 Unspecified atrial flutter; Z82.49 Family history of ischemic heart disease and other diseases of the circulatory system; Z86.73 Personal history of transient ischemic attack (TIA), and cerebral infarction without residual deficits; Z85.21 Personal history of malignant neoplasm of larynx; Z92.3 Personal history of irradiation; Z79.01 Long term (current) use of anticoagulants
CPT/HCPCS: 71010; 80053; 82550; 83735; 83880; 84443; 84484; 85025; 85610; 85730; 93005; 96374; 96376; 99285; G0378